=== PATIENT | female | born 1935 | race Caucasian/White ===

== ENCOUNTER → 2024-01-18 08:31 | Outpatient (REF) | payer MEDICARE, OTHER, SELFPAY ==
[2024-01-18 09:41] LABS: % Basophils 0.9 % (0-2); % Eosinophils 3.8 % (0-6); % Immature Granulocytes 0.3 % (0-0.5); % Monocytes 13.6 % (1.7-9.3); % Neutrophils 50.4 % (42.2-75.2); Absolute Eosinophils 0.1 10^3/uL (0-0.7); Absolute Lymphocytes 1.1 10^3/uL (1.2-3.4); Absolute Monocytes 0.5 10^3/uL (0.1-0.6); Absolute Neutrophils 1.7 10^3/uL (1.4-6.5); Hematocrit 34.5 % (37.0-47.0); Hemoglobin 11.8 g/dL (12.0-16.0); Mean Corp Hgb Conc. 34.2 g/dL (33.0-37.0); Mean Corpuscular Hgb 30.7 pg (27.0-31.0); Mean Corpuscular Volume 89.8 fL (81.0-99.0); Mean Platelet Volume 9.4 fL (7.4-10.4); Nucleated Red Blood Cells % 0 %; Platelet Count 222 10^3/uL (130-400); Red Blood Cell Count 3.84 10^6/uL (4.20-5.40); Red Cell Dist. Width 13.6 % (11.5-14.5); White Blood Cell Count 3.4 10^3/uL (4.8-10.8)
[2024-01-18 10:14] LABS: ALT (SGPT) 20 U/L (0-35); AST (SGOT) 24 U/L (14-36); Albumin 3.9 g/dl (3.5-5.0); Alkaline Phosphatase 75 U/L (38-126); Blood Urea Nitrogen 27 mg/dl (7-17); Calcium 10.2 mg/dl (8.4-10.2); Carbon Dioxide 22 mmol/L (22-30); Chloride 109 mmol/L (98-107); Glucose 93 mg/dl (70-99); Potassium 4.1 mmol/L (3.5-5.1); Sodium 139 mmol/L (135-145); Total Bilirubin 0.5 mg/dl (0.2-1.3); Total Protein 6.6 g/dl (6.3-8.2); eGFR > 60.00
[2024-01-18 10:27] LABS: Intact PTH 120.9 pg/ml (13.6-85.8)
[2024-01-18 10:44] LABS: Cortisol, Random 10.2 ug/dl
[2024-01-18 12:59] LABS: Urine Calcium 11.9 mg/dl
[2024-01-18 13:00] LABS: 24 Hour Urine Calcium 202.3 mg/day; 24 Hour Urine Total Volume 1700 ml
[2024-01-19 23:24] LABS: IgA 232 mg/dl (70-400)
[2024-01-20 17:36] LABS: Endomysial IgA Antibody Titer <1:10 (<1:10)
== END ==
LOC: REG 08:31
PROVIDERS: ATTENDING PHYSICIAN Physician Assistant; FAMILY PHYSICIAN Emergency Medicine
DX: M81.0 Age-related osteoporosis without current pathological fracture (principal); K90.0 Celiac disease
CPT/HCPCS: 36415; 72070; 72100; 80053; 81050; 82340; 82533; 82784; 83516; 83970; 84155; 84165; 85025; 86231

== ENCOUNTER → 2024-01-25 09:57 | Outpatient (REF) | payer MEDICARE, OTHER, SELFPAY | LOC: RCS 09:57 | PROVIDERS: ATTENDING PHYSICIAN Internal Medicine Cardiovascular Disease; FAMILY PHYSICIAN Emergency Medicine | DX: I71.20 Thoracic aortic aneurysm, without rupture, unspecified (principal) | CPT/HCPCS: 93306 ==

== ENCOUNTER 2024-07-01 14:12 | Emergency (ER) | payer MEDICARE, OTHER, SELFPAY ==
[2024-07-01 14:15] VITALS: BP 153/94
--- NOTE | 2024-07-01 14:18 | ED.GENMED ---
ED Provider Triage
<Vahe Rosa PA-C - Last Filed: 07/01/24 14:19>
-
Patient seen by provider in Triage?: Seen in Triage
88-year-old female presents in referral from family doctor's office. She has had intermittent chest pain over the past week. She notes left sided discomfort. EKG at doctor's office showed subtle EKG changes and I sent her in for evaluation.
Currently no chest pain on my assessment.
Will check EKG blood work and chest x-ray through triage.
Patient received medical screening assessment by healthcare provider through triage. Further evaluation is warranted
History of Present Illness
<Vahe Rosa PA-C - Last Filed: 07/01/24 14:19>
General
Chief Complaint: Blood Pressure Problem
Time Seen by Provider: 07/01/24 15:59
<Francois Enriquez MD - Last Filed: 07/01/24 21:33>
General
Source: patient
Exam Limitations: none
Nursing documentation reviewed up to this point in time: agreed with
History of Present Illness
History of Present Illness:
Patient presents to ED from primary care physician's office secondary to intermittent chest pain along with elbow pressure, as well as 'subtle changes on EKG'. Patient states that about 1 week ago, while she was preparing dinner for Thanksgiving,
she developed shaking in her arms and 'not feeling well'. She went into her room and checked her blood pressure and was noted to be elevated with systolic blood pressure greater than 180. Patient was able to lay down and rest, with improvement.
Since then, patient has been keeping log of her blood pressure daily, as she knew that she would have to see her primary care physician. Denies nausea or dizziness. Denies shortness of breath. Patient states the initial shaking and not feeling
well symptoms improved and resolved over the next 24 hours. At the time of evaluation at primary care physician's office, patient did express intermittent chest discomfort, which she currently does not have. Denies a previous history of similar
symptoms. Denies recent travel. Denies recent change in medications or diet. Denies recent trauma.
Past History
<Vahe Rosa PA-C - Last Filed: 07/01/24 14:19>
Past History
ED Past Medical History: None
ED Past Surgical History: None
Social History
Tobacco: Non-smoker
Review of Systems
<Francois Enriquez MD - Last Filed: 07/01/24 21:33>
Review of Systems
Allergies reviewed?: Yes
All Other Systems: ROS reviewed and negative except as documented in HPI and ROS
Constitutional: Reports no symptoms; Denies fever
EENT: Reports no symptoms
Respiratory: Reports no symptoms; Denies trouble breathing
Cardiac: Reports chest pain; Denies diaphoresis or palpitations
ABD/GI: Reports no symptoms
Musculoskeletal: Reports no symptoms
Skin: Reports no symptoms
Neurological: Reports no symptoms; Denies dizzy, headache or weakness
Phy Exam
<Francois Enriquez MD - Last Filed: 07/01/24 21:33>
Physical Exam
Physical Exam:
Physical Exam
General: no apparent distress, not acutely ill. afebrile
Head: nc/at. eomi
Neck: supple. normal range of motion.
Heart: s1/s2 regular rate and rhythm, no murmur. equal radial pulses.
Lungs: no acute respiratory distress. clear bilaterally
Abdomen: normal bowel sounds. not tender.
Neuro: alert and oriented. no focal neurological deficits
Skin: no rash
Psychiatric: well kept. interactive and cooperative
Extremities: no edema. no calf tenderness.
Course
<Vahe Rosa PA-C - Last Filed: 07/01/24 14:19>
Orders/Labs/Results
Orders:
Orders
07/01/24 14:17
Electrocardiogram (*1) Urgent
Reason for Study: Chest Pain
EKG- Treatment ONCE
07/01/24 14:29
Complete Blood Count/With Diff Urgent
Comprehensive Metabolic Panel Urgent
Troponin I Urgent
Abnormal Lab Results
07/01/24
14:29
WBC 4.6 L 10^3/uL
(4.8-10.8)
Glucose 108 H mg/dl
(70-99)
07/01/24 14:29
07/01/24 14:29
Vital Signs
Initial and Last Documented VS:
Initial Vital Signs
Temp Pulse Resp BP Pulse Ox
97.5 F 85 16 153/94 97
07/01/24 14:15 07/01/24 14:15 07/01/24 14:15 07/01/24 14:15 07/01/24 14:15
Last Documented Vital Signs
Temp Pulse Resp BP Pulse Ox
97.5 F 85 16 120/93 98
07/01/24 14:15 07/01/24 14:15 07/01/24 14:15 07/01/24 16:13 07/01/24 16:15
Bettylt;Francois Enriquez MD - Last Filed: 07/01/24 21:33>
Orders/Labs/Results
Orders:
Orders
07/01/24 14:17
Electrocardiogram (*1) Urgent
Reason for Study: Chest Pain
EKG- Treatment ONCE
07/01/24 14:29
Complete Blood Count/With Diff Urgent
Comprehensive Metabolic Panel Urgent
Troponin I Urgent
Abnormal Lab Results
07/01/24
14:29
WBC 4.6 L 10^3/uL
(4.8-10.8)
Glucose 108 H mg/dl
(70-99)
07/01/24 14:29
12/04/24 14:29
Vital Signs
Initial and Last Documented VS:
Initial Vital Signs
Temp Pulse Resp BP Pulse Ox
97.5 F 85 16 153/94 97
07/01/24 14:15 07/01/24 14:15 07/01/24 14:15 07/01/24 14:15 07/01/24 14:15
Last Documented Vital Signs
Temp Pulse Resp BP Pulse Ox
97.5 F 85 16 120/93 98
07/01/24 14:15 07/01/24 14:15 07/01/24 14:15 07/01/24 16:13 07/01/24 16:15
<Francois Enriquez MD - Last Filed: 07/01/24 21:33>
MDM/Problems Addressed
MDM/Problems Addressed:
History and exam inconsistent with ACS, along with an unremarkable workup in ED, including EKG and blood work. Patient's vital signs stable and she is without any complaints, at time of discharge. However given fluctuating blood pressure along
with nonspecific chest discomfort, patient will be referred to her primary hostess cashier, Dr. Mathis, for reevaluation as an outpatient.
<Francois Enriquez MD - Last Filed: 07/01/24 21:33>
*Critical Care Note
Total Time (30-74mins, 75-104mins- exclusive of procedures): Not Applicable
ED Attending Note
<Vahe Rosa PA-C - Last Filed: 07/01/24 14:19>
-
Portions of this chart may have been created with voice recognition software.� Occasional wrong word or��sound alike� substitutions may have occurred due to the inherent limitations of voice recognition software.
Discharge Plan
Departure
Patient Disposition: Home (Routine Discharge)
Date of Disposition: 07/01/24
Time of Disposition: 16:30
Patient with high blood pressure during this ER visit?: Yes
Condition: Good
Discharge Problem:
Hypertension
Instructions: High Blood Pressure (DC), Chest Pain DCA Follow Up
Prescriptions:
No Action
astaxanthin 4 MG capsule
8 mg PO DAILY
C,E,zinc,copper [id number] 1 CAP capsule
1 cap PO DAILY
Epicor
125 mg PO DAILY
Lutein
20 mg PO DAILY
Zeaxanthin
8 mg PO DAILY
Dry [place] Benefits Liquid
1 tab PO DAILY
Vitamin B Complex-50
1 tab PO .MWF
glutathione [Glutathione-L] 500 GM powder
500 gm PO MONTHLY
carboxymethylcellulose sodium [TheraTears] 1 EACH dropperette
1 ea OP TID
bevacizumab [Avastin] 25 MG/ML solution
25 mg INJ PRN PRN (Reason: As Needed)
vit A,C and [id number] [Ocuvite with Lutein] 1 EACH tablet
1 ea PO TID
calcium citrate-vitamin D3 1 EACH tablet
1 ea PO BID
hyalur ac-chond sul-colg II-AA [Hyaluronic Acid (chond-collgn)] 1 EACH capsule
1 ea PO DAILY
Referrals:
Fani Dey MD [Family Provider] -
Dwayne Mathis MD [Active] -
Activity Restrictions/Additional Instructions:
As discussed, please follow-up with your primary hostess cashier for further evaluation and treatment.
Interventions
Interventions:
*Risk Screen - Suicide Last Done: 07/01/24 14:15
*General Assessment Last Done: 07/01/24 14:15
*Neglect/Abuse Screening Last Done: 07/01/24 14:15
*ED COVID-19 Vaccine History Last Done: 07/01/24 14:15
*Nursing Disposition Last Done: 07/01/24 16:53
ED- Cardiac Assessment Last Done: 07/01/24 16:13
ED- Neurological Assessment Last Done: 07/01/24 16:13
ED- Pulmonary Assessment Last Done: 07/01/24 16:13
Discharge Date and Time
Discharge Date/Time: 07/01/24 16:53
Print Language: BANGLADESHI
[2024-07-01 14:36] LABS: % Basophils 0.9 % (0-2); % Eosinophils 1.3 % (0-6); % Lymphocytes 30.3 % (20.5-51.1); % Monocytes 7.6 % (1.7-9.3); % Neutrophils 59.9 % (42.2-75.2); Absolute Eosinophils 0.1 10^3/uL (0-0.7); Absolute Lymphocytes 1.4 10^3/uL (1.2-3.4); Absolute Monocytes 0.4 10^3/uL (0.1-0.6); Absolute Neutrophils 2.7 10^3/uL (1.4-6.5); Hematocrit 39.8 % (37.0-47.0); Hemoglobin 13.2 g/dL (12.0-16.0); Mean Corp Hgb Conc. 33.2 g/dL (33.0-37.0); Mean Corpuscular Hgb 30.6 pg (27.0-31.0); Mean Corpuscular Volume 92.1 fL (81.0-99.0); Mean Platelet Volume 8.9 fL (7.4-10.4); Nucleated Red Blood Cells % 0 %; Platelet Count 206 10^3/uL (130-400); Red Blood Cell Count 4.32 10^6/uL (4.20-5.40); Red Cell Dist. Width 13.7 % (11.5-14.5); White Blood Cell Count 4.6 10^3/uL (4.8-10.8)
[2024-07-01 14:54] LABS: ALT (SGPT) 20 U/L (0-35); AST (SGOT) 25 U/L (14-36); Albumin 4.4 g/dl (3.5-5.0); Alkaline Phosphatase 84 U/L (38-126); Blood Urea Nitrogen 15 mg/dl (7-17); Calcium 10.2 mg/dl (8.4-10.2); Carbon Dioxide 27 mmol/L (22-30); Chloride 106 mmol/L (98-107); Glucose 108 mg/dl (70-99); Potassium 4.2 mmol/L (3.5-5.1); Sodium 141 mmol/L (135-145); Total Bilirubin 0.4 mg/dl (0.2-1.3); Total Protein 7.3 g/dl (6.3-8.2); eGFR > 60.00
[2024-07-01 15:00] LABS: Troponin I < 0.012 ng/ml
[2024-07-01 16:13] VITALS: BP 120/93
== END 2024-07-01 16:53 | disposition home or self-care (01) ==
LOC: EMR 14:12
PROVIDERS: Physician Assistant; EMERGENCY PHYSICIAN Emergency Medicine; FAMILY PHYSICIAN Emergency Medicine
DX: I10 Essential (primary) hypertension (principal)
CPT/HCPCS: 99284; 80053; 84484; 85025; 93005

== ENCOUNTER → 2024-09-11 10:28 | Outpatient (REF) | payer MEDICARE, OTHER, SELFPAY ==
[2024-09-11 11:57] LABS: Blood Urea Nitrogen 24 mg/dl (7-17); Calcium 9.7 mg/dl (8.4-10.2); Carbon Dioxide 27 mmol/L (22-30); Chloride 106 mmol/L (98-107); Glucose 92 mg/dl (70-99); Phosphorus 3.2 mg/dl (2.5-4.5); Potassium 3.9 mmol/L (3.5-5.1); Sodium 139 mmol/L (135-145); eGFR > 60.00
[2024-09-11 12:10] LABS: Vitamin D, 25-OH*** 27.8 ng/mL (30-80)
[2024-09-11 12:22] LABS: Intact PTH 169.6 pg/ml (13.6-85.8)
== END ==
LOC: REG 10:28
PROVIDERS: ATTENDING PHYSICIAN Internal Medicine Rheumatology; FAMILY PHYSICIAN Emergency Medicine
DX: E21.3 Hyperparathyroidism, unspecified (principal); E55.9 Vitamin D deficiency, unspecified; M81.0 Age-related osteoporosis without current pathological fracture
CPT/HCPCS: 36415; 80048; 82306; 83970; 84100

== ENCOUNTER → 2025-03-03 15:33 | Outpatient (REF) | payer MEDICARE, OTHER, SELFPAY | LOC: MRI 3T 15:33 | PROVIDERS: ATTENDING PHYSICIAN Orthopaedic Surgery; FAMILY PHYSICIAN Emergency Medicine | DX: M54.16 Radiculopathy, lumbar region (principal) | CPT/HCPCS: 72148 ==

== ENCOUNTER → 2025-03-15 09:42 | Outpatient (REF) | payer MEDICARE, OTHER, SELFPAY ==
[2025-03-15 11:16] LABS: ALT (SGPT) 16 U/L (0-35); AST (SGOT) 19 U/L (14-36); Albumin 4.0 g/dl (3.5-5.0); Alkaline Phosphatase 69 U/L (38-126); Blood Urea Nitrogen 20 mg/dl (7-17); Calcium 10.1 mg/dl (8.4-10.2); Carbon Dioxide 25 mmol/L (22-30); Chloride 110 mmol/L (98-107); Glucose 90 mg/dl (70-99); Potassium 4.4 mmol/L (3.5-5.1); Sodium 141 mmol/L (135-145); Total Protein 6.9 g/dl (6.3-8.2); eGFR > 60.00
== END ==
LOC: REG 09:42
PROVIDERS: ATTENDING PHYSICIAN Internal Medicine Rheumatology; FAMILY PHYSICIAN Emergency Medicine
DX: M81.0 Age-related osteoporosis without current pathological fracture (principal); Z51.81 Encounter for therapeutic drug level monitoring
CPT/HCPCS: 36415; 80053

== ENCOUNTER → 2025-04-28 10:41 | Outpatient (REF) | payer MEDICARE, OTHER, SELFPAY ==
[2025-04-28 13:04] LABS: Vitamin D, 25-OH*** 26.1 ng/mL (30-80)
[2025-04-28 14:18] LABS: Calcium 10.1 mg/dl (8.4-10.2)
[2025-04-28 15:38] LABS: 24 Hour Urine Total Volume 2000 ml
== END ==
LOC: REG 10:41
PROVIDERS: ATTENDING PHYSICIAN Internal Medicine Rheumatology; FAMILY PHYSICIAN Family Medicine
DX: E55.9 Vitamin D deficiency, unspecified (principal); M81.0 Age-related osteoporosis without current pathological fracture; R29.890 Loss of height; Z51.81 Encounter for therapeutic drug level monitoring
CPT/HCPCS: 36415; 81050; 82306; 82340; 83520; 83970; 84100; 84156; 86335

== ENCOUNTER → 2025-06-04 10:17 | Outpatient (REF) | payer MEDICARE, OTHER, SELFPAY | LOC: RCS 10:17 | PROVIDERS: ATTENDING PHYSICIAN Internal Medicine Cardiovascular Disease; FAMILY PHYSICIAN Family Medicine | DX: I77.810 Thoracic aortic ectasia (principal) | CPT/HCPCS: 93306 ==